=== PATIENT | female | born 1960 | race Caucasian/White ===

== ENCOUNTER 2017-03-07 18:19 | Emergency (ER) | payer BC ==
[~2017-03-07 18:19] MED LIST: AUGMENTIN875 M1 PO; BACITRACIN30 GM TOP; BENADRYL IV; BP MED; LEVOTHYROXINE25 MCG PO; THYROID MED; ZESTRIL5 MG
[2017-03-07] MEDS ORDERED: SYNTHROID0.05 MG (18:38)
[2017-03-07] MEDS ORDERED: AMLODIPINE-OLM1 EAC2 (18:38)
[2017-03-07] MEDS ORDERED: PRINIVIL20 M1 (18:38)
== END 2017-03-07 19:25 | disposition home or self-care (01) ==
LOC: SED 18:19
DX: R21 Rash and other nonspecific skin eruption (principal); I10 Essential (primary) hypertension; Z23 Encounter for immunization; Z98.51 Tubal ligation status
CPT/HCPCS: 90471; 90715; 99283